=== PATIENT | female | born 1965 | race African-American/Black ===

== ENCOUNTER → 2017-03-05 14:56 | Outpatient (CLI) | payer OTHER ==
[2017-02-06 13:08] VITALS: BMI 35.3
[~2017-03-05 14:56] MED LIST: FLAGYL500 MG PO; FLORAJEN3 CAPS460 MG PO; FOLIC ACID1 MG PO; LIPITOR10 MG; NORCO 7.5/325 T1 TA1 PO; XANAX0.25 MG PO
== END | disposition home or self-care (01) ==
LOC: D.MAMMO 11:00
DX: Z12.31 Encounter for screening mammogram for malignant neoplasm of breast (principal)

== ENCOUNTER 2020-02-25 13:15 | Outpatient (CLI) | payer OTHER ==
[2017-02-06 13:08] VITALS: BMI 35.3
== END 2020-02-25 14:00 | disposition home or self-care (01) ==
LOC: D.MAMMO 13:15
PROVIDERS: ATTEND Family Medicine
DX: Z12.31 Encounter for screening mammogram for malignant neoplasm of breast (principal)

== ENCOUNTER → 2020-07-22 10:36 | Outpatient (CLI) | payer OTHER ==
[2017-02-06 13:08] VITALS: BMI 35.3
== END | disposition home or self-care (01) ==
LOC: D.US 10:36
PROVIDERS: ATTEND Family Medicine
DX: R52 Pain, unspecified (principal)